=== PATIENT | male | born 1970 | race Caucasian/White ===

== ENCOUNTER 2022-02-07 19:25 | Observation (INO) | payer OTHER ==
[2022-02-07] MEDS ORDERED: DUONEB 0.5-3 MG/3 ml Neb IH ONE ×2 (19:51→19:58)
[2022-02-07] MEDS ORDERED: solu-MEDROL 125 MG, Sterile H2O 10 ml 2 ML IV ONE ×2 (19:51)
[2022-02-07 19:54] LABS: Absolute Neutrophil Ct (ANC) 3.78 (1.4-6.9); Basophil (Absolute #) 0.02 (0-0.4); Eosinophil % 0.6 % (0.00-5.0); Eosinophil (Absolute #) 0.03 (0-0.5); Hematocrit 49.3 % (42-50); Hemoglobin 16.3 gm/dl (12.5-18.0); Lymphocyte (Absolute #) 0.81 (1.0-4.6); Lymphocytes % 15.5 % (24.0-44.0); Mean Cell Volume 84.9 fl (78-100); Mean Corpuscular Hemoglobin 28.1 pg (26-32); Mean Corpuscular Hgb Concent. 33.1 g/dl (32-36); Mean Platelet Volume 9.4 fl (7.5-11.0); Monocyte (Absolute #) 0.58 (0.0-1.3); Monocytes % 11.1 % (0.0-12.0); Neutrophil % 72.4 % (36.0-66.0); Platelet Count 247 K/mm3 (150-450); Red Blood Count 5.81 M/mm3 (4.1-5.6); Red Cell Distribution Width 14.9 % (11.5-14.0); White Blood Count 5.2 K/mm3 (4.0-10.5)
--- NOTE | 2022-02-07 20:00 | ERPHSYRPT ---
- History of Present Illness Time Seen by Provider: 02/07/22 19:35 Source: patient Exam Limitations: no limitations Patient Subjective Stated Complaint: pt states he has been increasingly short of breath the last 2 days. Triage Nursing Assessment: pt alert and oriented, answers questions approp. pt ambualtory with steady gait noted. skin warm and dry. pt short of breath with exertion. exp wheezes note bilat. Physician History: Patient is a 52-year-old male presents to emergency department for evaluation of shortness of breath. Patient states he was diagnosed with bilateral pneumonia on Saturday, 3 days ago. Patient currently on azithromycin. Patient states his symptoms have been progressive. Patient is not having significant short of breath. Patient treated himself with a friend's nebulizer machine. Treatment occurred at approximately 1830. The nebulizer treatment helped somewhat however patient is still short of breath. Patient has been coughing more frequently than normal. Cough is occasionally productive. Patient has audible wheezing. 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 No nausea or vomiting. No diarrhea. No rash. Symptoms are progressive. Symptoms are mode rate in intensity. No specific worsening improving factors. Patient states otherwise healthy. He voices no other complaints or concerns at this time. Patient also states experiencing pleuritic chest pain. Pain worse with deep inspiration. Timing/Duration: day(s) (3 days) Activities at Onset: none Severity of Dyspnea-Max: moderate Severity of Dyspnea-Current: moderate Modifying Factors: Improves With: activity, oxygen Associated Symptoms: cough, chest pain/discomfort (Pleuritic chest pain), productive cough, No fever, No ankle swelling, No muscle spasms feet, No muscle spasms hands Allergies/Adverse Reactions: vancomycin Allergy (Severe, Verified 02/07/22 19:40) Anaphylactic Reaction amoxicillin [From Augmentin] Adverse Reaction (Intermediate, Verified 02/07/22 19:40) clavulanic acid [From Augmentin] Adverse Reaction (Intermediate, Verified 02/07/22 19:40) Home Medications: Azithromycin [Zithromax] 250 mg PO DAILY 02/07/22 [History] Methylprednisolone Packet [Medrol Dosepack] 4 mg PO UD 02/07/22 [History] Hx Tetanus, Diphtheria Vaccination/Date Given: Yes Hx Influenza Vaccination/Date Given: No Hx Pneumococcal Vaccination/Date Given: No Immunizations Up to Date: Yes Travel Risk - International Travel Have you traveled outside of the country in past 3 weeks: No - Coronavirus Screening Are you exhibiting any of the following symptoms?: Yes Symptoms: Fever, Shortness of Breath Close contact with a COVID-19 positive Pt in past 14-21 Days: No - Vaccine Status Have you recieved a Covid-19 vaccination: No - Review of Systems Constitutional: No Symptoms, No Fever, No Chills Eyes: No Symptoms Ears, Nose, & Throat: No Symptoms Respiratory: No Symptoms, No Cough, No Dyspnea Cardiac: No Symptoms, No Chest Pain, No Edema, No Syncope Abdominal/Gastrointestinal: No Symptoms, No Abdominal Pain, No Nausea, No Vomiting, No Diarrhea Genitourinary Symptoms: No Symptoms, No Dysuria Musculoskeletal: No Symptoms, No Back Pain, No Neck Pain Skin: No Symptoms, No Rash Neurological: No Symptoms, No Dizziness, No Focal Weakness, No Sensory Changes Psychological: No Symptoms Endocrine: No Symptoms Hematologic/Lymphatic: No Symptoms Immunological/Allergic: No Symptoms All Other Systems: Reviewed and Negative - Past Medical History Pertinent Past Medical History: Yes Respiratory History: Asthma, CHF - Past Surgical History Past Surgical History: Yes Musculoskeletal: Orthopedic Surgery Other Surgical History: loop recorder, sinus surgery - Social History Smoking Status: Never smoker Exposure to second hand smoke: No Drug Use: none Patient Lives Alone: Yes - Nursing Vital Signs Nursing Vital Signs: Initial Vital Signs Temperature 98.5 F 02/07/22 19:25 Pulse Rate 80 02/07/22 19:25 Respiratory Rate 22 02/07/22 19:25 Blood Pressure 110/82 02/07/22 19:25 O2 Sat by Pulse Oximetry 100 02/07/22 19:25 Pain Scale Pain Intensity 3 - Physical Exam General Appearance: no apparent distress, alert Eye Exam: PERRL/EOMI Ears, Nose, Throat Exam: hearing grossly normal, normal ENT inspection, normal pharynx Neck Exam: normal inspection, supple, full range of motion Respiratory Exam: airway intact, accessory muscle use, rhonchi, wheezing, other (Mild tachypnea.) Cardiovascular/Chest Exam: normal heart sounds, regular rate/rhythm Abdominal/Gastrointestinal Exam: soft, No tenderness, No distention, No mass Extremity Exam: non-tender, normal range of motion, normal inspection, no calf tenderness, no pedal edema Peripheral Pulses Exam: dorsalis-pedis (R): 2+, dorsalis-pedis (L): 2+ Neurologic Exam: alert, oriented x 3, 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 No evidence of acute pulmonary pathology. No consolidation no masses. No lymphadenopathy. Normal soft tissues) Ordered Tests: Active Orders 24 hr Category Date Time Status Last Greaser STAT Care 02/07/22 19:49 Active EKG-ER Only STAT Care 02/07/22 19:47 Active IV Insertion STAT Care 02/07/22 19:47 Active Pulse Oximetry (ED) STAT Care 02/07/22 19:47 Active CHEST WITH CONTRAST [CT] Stat Exams 02/07/22 21:39 Taken BLOOD CULTURE Stat Lab 02/07/22 20:05 Received CBC W DIFF Stat Lab 02/07/22 19:20 Completed CMP Stat Lab 02/07/22 19:20 Completed D-DIMER QUANTITATIVE Stat Lab 02/07/22 19:20 Completed Lactic Acid Stat Lab 02/07/22 19:47 Completed TROPONIN Q3H Lab 02/07/22 19:20 Completed TROPONIN Q3H Lab 02/07/22 23:00 Completed TROPONIN Q3H Lab 02/08/22 02:00 Ordered TROPONIN Q3H Lab 02/08/22 05:00 Ordered TROPONIN Q3H Lab 02/08/22 08:00 Ordered Respiratory Therapy Assessment DAILY RT 02/07/22 20:02 Active Transfer Order Routine Transfer 02/08/22 Ordered Medication Summary Discontinued Medications Generic Name Dose Route Start Last Admin Trade Name Freq PRN Reason Stop Dose Admin Albuterol/Ipratropium 3 ml 02/07/22 19:51 02/07/22 19:59 Ipratropium/Albuterol Sulfate 3 Ml Ampul.Neb IH 02/07/22 19:52 3 ml STAT ONE Administration Albuterol/Ipratropium Confirm 02/07/22 19:58 Ipratropium/Albuterol Sulfate 3 Ml Ampul.Neb Administered 02/07/22 19:59 Dose 3 ml IH .STK-MED ONE Methylprednisolone Sodium 0 mg 02/07/22 19:51 02/07/22 20:03 Succinate 125 mg/ Sterile IV 02/07/22 19:52 125 mg Water 2 ml STAT ONE Administration Methylprednisolone Sodium Succinate Confirm 02/07/22 20:01 Methylprednis Sod Succ 125 Mg/2 Ml Vial Administered 02/07/22 20:02 Dose 125 mg .ROUTE .STK-MED ONE Sterile Water Confirm 02/07/22 20:01 Water For Injection,Sterile 10 Ml Vial Administered 02/07/22 20:02 Dose 10 ml IJ .STK-MED ONE Lab/Rad Data: Laboratory Result Diagrams 02/07/22 19:20 02/07/22 19:20 Laboratory Results 02/08/22 02/07/22 02/07/22 Range/Units 00:26 23:00 19:47 WBC (4.0-10.5) K/mm3 RBC (4.1-5.6) M/mm3 Hgb (12.5-18.0) gm/dl Hct (42-50) % MCV (78-100) fl MCH (26-32) pg MCHC (32-36) g/dl RDW (11.5-14.0) % Plt Count (150-450) K/mm3 MPV (7.5-11.0) fl Gran % (36.0-66.0) % Eos # (Auto) (0-0.5) Absolute Lymphs (auto) (1.0-4.6) Absolute Monos (auto) (0.0-1.3) Lymphocytes % (24.0-44.0) % Monocytes % (0.0-12.0) % Eosinophils % (0.00-5.0) % Basophils % (0.0-0.4) % Absolute Granulocytes (1.4-6.9) Basophils # (0-0.4) D-Dimer (215-500) ng/mL Sodium (137-145) mmol/L Potassium (3.5-5.1) mmol/L Chloride (98-107) mmol/L Carbon Dioxide (22-30) mmol/L Anion Gap (5-15) MEQ/L BUN (9-20) mg/dL Creatinine (0.66-1.25) mg/dL Estimated GFR ML/MIN Glucose (74-106) mg/dL Lactic Acid 1.8 (0.4-2.0) Calcium (8.4-10.2) mg/dL Total Bilirubin (0.2-1.3) mg/dL AST (17-59) U/L ALT (0-50) U/L Alkaline Phosphatase (38-126) U/L Troponin I < 0.012 (0.000-0.034) ng/mL Serum Total Protein (6.3-8.2) g/dL Albumin (3.5-5.0) g/dL Influenza Type A Ag NEGATIVE (NEGATIVE) Influenza Type B Ag NEGATIVE (NEGATIVE) RSV (PCR) NEGATIVE (Negative) SARS-CoV-2 (PCR) NEGATIVE (NEGATIVE) 02/07/22 02/07/22 02/07/22 Range/Units 19:20 19:20 19:20 WBC (4.0-10.5) K/mm3 RBC (4.1-5.6) M/mm3 Hgb (12.5-18.0) gm/dl Hct (42-50) % MCV (78-100) fl MCH (26-32) pg MCHC (32-36) g/dl RDW (11.5-14.0) % Plt Count (150-450) K/mm3 MPV (7.5-11.0) fl Gran % (36.0-66.0) % Eos # (Auto) (0-0.5) Absolute Lymphs (auto) (1.0-4.6) Absolute Monos (auto) (0.0-1.3) Lymphocytes % (24.0-44.0) % Monocytes % (0.0-12.0) % Eosinophils % (0.00-5.0) % Basophils % (0.0-0.4) % Absolute Granulocytes (1.4-6.9) Basophils # (0-0.4) D-Dimer 557 H* (215-500) ng/mL Sodium 138 (137-145) mmol/L Potassium 4.4 (3.5-5.1) mmol/L Chloride 104 (98-107) mmol/L Carbon Dioxide 24 (22-30) mmol/L Anion Gap 13.8 (5-15) MEQ/L BUN 12 (9-20) mg/dL Creatinine 1.01 (0.66-1.25) mg/dL Estimated GFR > 60.0 ML/MIN Glucose 98 (74-106) mg/dL Lactic Acid (0.4-2.0) Calcium 9.2 (8.4-10.2) mg/dL Total Bilirubin 1.00 (0.2-1.3) mg/dL AST 27 (17-59) U/L ALT 26 (0-50) U/L Alkaline Phosphatase 54 (38-126) U/L Troponin I < 0.012 (0.000-0.034) ng/mL Serum Total Protein 6.7 (6.3-8.2) g/dL Albumin 3.9 (3.5-5.0) g/dL Influenza Type A Ag (NEGATIVE) Influenza Type B Ag (NEGATIVE) RSV (PCR) (Negative) SARS-CoV-2 (PCR) (NEGATIVE) 02/07/22 Range/Units 19:20 WBC 5.2 (4.0-10.5) K/mm3 RBC 5.81 H (4.1-5.6) M/mm3 Hgb 16.3 (12.5-18.0) gm/dl Hct 49.3 (42-50) % MCV 84.9 (78-100) fl MCH 28.1 (26-32) pg MCHC 33.1 (32-36) g/dl RDW 14.9 H (11.5-14.0) % Plt Count 247 (150-450) K/mm3 MPV 9.4 (7.5-11.0) fl Gran % 72.4 H (36.0-66.0) % Eos # (Auto) 0.03 (0-0.5) Absolute Lymphs (auto) 0.81 L (1.0-4.6) Absolute Monos (auto) 0.58 (0.0-1.3) Lymphocytes % 15.5 L (24.0-44.0) % Monocytes % 11.1 (0.0-12.0) % Eosinophils % 0.6 (0.00-5.0) % Basophils % 0.4 (0.0-0.4) % Absolute Granulocytes 3.78 (1.4-6.9) Basophils # 0.02 (0-0.4) D-Dimer (215-500) ng/mL Sodium (137-145) mmol/L Potassium (3.5-5.1) mmol/L Chloride (98-107) mmol/L Carbon Dioxide (22-30) mmol/L Anion Gap (5-15) MEQ/L BUN (9-20) mg/dL Creatinine (0.66-1.25) mg/dL Estimated GFR ML/MIN Glucose (74-106) mg/dL Lactic Acid (0.4-2.0) Calcium (8.4-10.2) mg/dL Total Bilirubin (0.2-1.3) mg/dL AST (17-59) U/L ALT (0-50) U/L Alkaline Phosphatase (38-126) U/L Troponin I (0.000-0.034) ng/mL Serum Total Protein (6.3-8.2) g/dL Albumin (3.5-5.0) g/dL Influenza Type A Ag (NEGATIVE) Influenza Type B Ag (NEGATIVE) RSV (PCR) (Negative) SARS-CoV-2 (PCR) (NEGATIVE) - Progress Progress: improved Air Movement: good Progress Note: Upon arrival to our ED patient was short of breath. Patient was hypoxic into the 80s. Nasal cannula applied. Oxygen saturation increased. After treatment with steroids and duo nebulizer treatment hypoxia improved while at rest. Troponin negative x2 , D-dimer positive. CTA chest negative. Patient advised that he was diagnosed with bilateral pneumonia. However CT chest did not reveal pneumonia. Patient ambulated in our ED. Patient maintaining saturations of approximately mid to low 90s. However during this time patient was tachypneic with labored breathing. Patient was not ready to be discharged home. Case discussed with Dr. Engel our on-call doctor who accepts admission to [facility]. Plan of care discussed with patient. He agrees to admission [facility] for further evaluation and treatment. Patient voices no other complaints or concerns at this time. Portions of this note were created with voice recognition technology. There may be grammatical, spelling, punctuation or sound alike errors 02/08/22 01:37 02/08/22 01:41 Blood Culture(s) Obtained: Yes Antibiotics given: Yes Discussed with DrDa: Chloe Will see patient in: hospital (observation) Counseled pt/family regarding: lab results, diagnosis, rad results - Departure Departure Disposition: Observation Clinical Impression: Hypoxia, SOB (shortness of breath), Wheezing Condition: Stable Critical Care Time: No Referrals: ANJELICA ROGERS [Primary Care Provider] - Follow up/PCP as directed
[2022-02-07 20:01] LABS: ALBUMIN 3.9 g/dL (3.5-5.0); ALKALINE PHOSPHATASE 54 U/L (38-126); ANION GAP 13.8 MEQ/L (5-15); BLOOD UREA NITROGEN 12 mg/dL (9-20); CHLORIDE 104 mmol/L (98-107); Calcium 9.2 mg/dL (8.4-10.2); Carbon Dioxide 24 mmol/L (22-30); Creatinine 1 1.01 mg/dL (0.66-1.25); EST GLOMERULAR FILTRATION RATE > 60.0 ML/MIN; Glucose 98 mg/dL (74-106); Potassium 4.4 mmol/L (3.5-5.1); SGOT/AST 27 U/L (17-59); SGPT/ALT 26 U/L (0-50); SODIUM 138 mmol/L (137-145); Total Protein 6.7 g/dL (6.3-8.2)
[2022-02-07] MEDS ORDERED: Sterile H2O 10 ml IJ ONE (20:01)
[2022-02-07] MEDS ORDERED: solu-MEDROL ONE (20:01)
[2022-02-08 01:04] LABS: INFLUENZA A NEGATIVE (NEGATIVE); INFLUENZA B NEGATIVE (NEGATIVE); RESPIRATORY SYNCTIAL VIRUS NEGATIVE (Negative); SARS-CoV-2 Xpert Express NEGATIVE (NEGATIVE)
[2022-02-08] MEDS ORDERED: LEVOFLOXACIN 750MG/150ML D5W 750 MG/150 ML BAG IV STA (01:38)
[2022-02-08] MEDS ORDERED: LEVOFLOXACIN 750MG/150ML D5W 750 MG/150 ML BAG IV ONE (01:43)
[2022-02-08] MEDS ORDERED: PROVENTIL Solution 2.5 MG/0.5 ML IH ONE (02:30)
[2022-02-08] MEDS: PROVENTIL 2.5 MG/3 ML NEB IH SCH ×6 (02:30→23:08)
[2022-02-08 05:18] LABS: Hematocrit 50.5 % (42-50); Hemoglobin 16.4 gm/dl (12.5-18.0); Mean Cell Volume 85.3 fl (78-100); Mean Corpuscular Hemoglobin 27.7 pg (26-32); Mean Corpuscular Hgb Concent. 32.5 g/dl (32-36); Mean Platelet Volume 9.3 fl (7.5-11.0); Platelet Count 253 K/mm3 (150-450); Red Blood Count 5.92 M/mm3 (4.1-5.6); White Blood Count 6.5 K/mm3 (4.0-10.5)
[2022-02-08] MEDS ORDERED: solu-MEDROL ONE (05:44)
[2022-02-08] MEDS ORDERED: Sterile H2O 10 ml IJ ONE (05:45)
[2022-02-08 06:07] LABS: ALBUMIN 4.1 g/dL (3.5-5.0); ALKALINE PHOSPHATASE 54 U/L (38-126); ANION GAP 18.3 MEQ/L (5-15); BLOOD UREA NITROGEN 11 mg/dL (9-20); CHLORIDE 100 mmol/L (98-107); Carbon Dioxide 25 mmol/L (22-30); Creatinine 1 0.96 mg/dL (0.66-1.25); EST GLOMERULAR FILTRATION RATE > 60.0 ML/MIN; Glucose 192 mg/dL (74-106); Potassium 4.8 mmol/L (3.5-5.1); SGOT/AST 27 U/L (17-59); SGPT/ALT 27 U/L (0-50); SODIUM 138 mmol/L (137-145); Total Protein 7.1 g/dL (6.3-8.2)
[2022-02-08] MEDS: solu-MEDROL 80 MG, Sterile H2O 10 ml 2 ML IV SCH ×6 (06:31→19:01)
--- NOTE | 2022-02-08 08:41 | PCM.HP ---
History of Present Illness - Chief Complaint Chief Complaint: SOB, Wheezing, Asthma History of Present Illness: is a 52 year old male who was seen in [place] last week with cough, fever and shortness of breath, he was diagnosed with bilateral pneumonia and placed on cefpodoxime and zithromax but continued to worsen, fever broke but he has been more short of breath and wheezing, used a friend's nebulizer with minimal improvement. Has a remote history of asthma earlier in life but no recent issues. - Review of Systems Constitutional: No Fever, No Chills Respiratory: Cough, Short Of Breath, Wheezing Cardiac: No Chest Pain, No Edema, No Syncope Abdominal/Gastrointestinal: No Abdominal Pain, No Nausea, No Vomiting, No Diarrhea Genitourinary Symptoms: No Dysuria Skin: No Rash All Other Systems: Reviewed and Negative Medications & Allergies Home Medications: Home Medication List Azithromycin [Zithromax] 250 mg PO DAILY 02/07/22 [History Confirmed 02/07/22] Methylprednisolone Packet [Medrol Dosepack] 4 mg PO UD 02/07/22 [History Confirmed 02/07/22] Omeprazole 40 mg PO BID 02/08/22 [History Confirmed 02/08/22] Allergies/Adverse Reactions: Allergies Allergy/AdvReac Type Severity Reaction Status Date / Time vancomycin Allergy Severe Anaphylactic Verified 02/07/22 19:40 Reaction amoxicillin [From Augmentin] AdvReac Intermediate Verified 02/07/22 19:40 clavulanic acid AdvReac Intermediate Verified 02/07/22 19:40 [From Augmentin] - Past Medical History Past Medical History: Yes Neurological History: No Pertinent History ENT History: No Pertinent History Cardiac History: Myocardial Infarction (AR) Respiratory History: Pneumonia Endocrine Medical History: No Pertinent History Musculoskelatal History: Arthritis GI Medical History: GERD History: No Pertinent History Pyscho-Social History: No Pertinent History Male Reproductive Disorders: No Pertinent History - Past Surgical History Past Surgical History: Yes (back and neck) Neuro Surgical History: No Pertinent History Cardiac History: Other Respiratory Surgery: No Pertinent History GI Surgical History: No Pertinent History Genitourinary Surgical Hx: No Pertinent History Musculskeletal Surgical Hx: Orthopedic Surgery Male Surgical History: No Pertinent History Other Surgical History: loop recorder, sinus surgery - Social History Smoking Status: Never smoker Exposure to second hand smoke: No Alcohol: None Drug Use: none - Physical Exam Vital Signs: Vital Signs - 24 hr Temp Pulse Resp BP Pulse Ox 02/08/22 07:43 97.7 F 85 26 H 121/72 95 02/08/22 04:00 98 H 20 94 L 02/08/22 02:30 77 18 95 02/08/22 02:17 97.9 F 83 20 150/70 95 02/08/22 01:59 95 02/08/22 01:42 100 02/08/22 01:15 81 18 148/79 97 02/08/22 00:13 77 18 151/78 97 02/08/22 00:00 81 151/78 96 02/07/22 23:18 80 16 137/86 94 L 02/07/22 22:00 80 18 122/68 96 02/07/22 21:00 82 127/79 96 02/07/22 20:29 78 110/76 96 02/07/22 20:03 75 20 96 02/07/22 20:00 94 L 02/07/22 19:25 98.5 F 80 22 110/82 100 General Appearance: no apparent distress Neurologic Exam: alert, oriented x 3 Respiratory Exam: wheezing Cardiovascular Exam: regular rate/rhythm, normal heart sounds, normal peripheral pulses Gastrointestinal/Abdomen Exam: soft, normal bowel sounds, No tenderness, No mass Extremity Exam: normal inspection, normal range of motion, pelvis stable Skin Exam: normal color, warm, dry, No rash Results - Labs Lab/Micro Results: Lab Results-Last 24 Hours 02/07/22 02/07/22 02/07/22 Range/Units 19:20 19:20 19:20 WBC 5.2 (4.0-10.5) K/mm3 RBC 5.81 H (4.1-5.6) M/mm3 Hgb 16.3 (12.5-18.0) gm/dl Hct 49.3 (42-50) % MCV 84.9 (78-100) fl MCH 28.1 (26-32) pg MCHC 33.1 (32-36) g/dl RDW 14.9 H (11.5-14.0) % Plt Count 247 (150-450) K/mm3 MPV 9.4 (7.5-11.0) fl Gran % 72.4 H (36.0-66.0) % Eos # (Auto) 0.03 (0-0.5) Absolute Lymphs (auto) 0.81 L (1.0-4.6) Absolute Monos (auto) 0.58 (0.0-1.3) Lymphocytes % 15.5 L (24.0-44.0) % Monocytes % 11.1 (0.0-12.0) % Eosinophils % 0.6 (0.00-5.0) % Basophils % 0.4 (0.0-0.4) % Absolute Granulocytes 3.78 (1.4-6.9) Basophils # 0.02 (0-0.4) D-Dimer 557 H* (215-500) ng/mL Sodium 138 (137-145) mmol/L Potassium 4.4 (3.5-5.1) mmol/L Chloride 104 (98-107) mmol/L Carbon Dioxide 24 (22-30) mmol/L Anion Gap 13.8 (5-15) MEQ/L BUN 12 (9-20) mg/dL Creatinine 1.01 (0.66-1.25) mg/dL Estimated GFR > 60.0 ML/MIN Glucose 98 (74-106) mg/dL Lactic Acid (0.4-2.0) Calcium 9.2 (8.4-10.2) mg/dL Total Bilirubin 1.00 (0.2-1.3) mg/dL AST 27 (17-59) U/L ALT 26 (0-50) U/L Alkaline Phosphatase 54 (38-126) U/L Troponin I (0.000-0.034) ng/mL Serum Total Protein 6.7 (6.3-8.2) g/dL Albumin 3.9 (3.5-5.0) g/dL Influenza Type A Ag (NEGATIVE) Influenza Type B Ag (NEGATIVE) RSV (PCR) (Negative) SARS-CoV-2 (PCR) (NEGATIVE) 02/07/22 02/07/22 02/07/22 Range/Units 19:20 19:47 23:00 WBC (4.0-10.5) K/mm3 RBC (4.1-5.6) M/mm3 Hgb (12.5-18.0) gm/dl Hct (42-50) % MCV (78-100) fl MCH (26-32) pg MCHC (32-36) g/dl RDW (11.5-14.0) % Plt Count (150-450) K/mm3 MPV (7.5-11.0) fl Gran % (36.0-66.0) % Eos # (Auto) (0-0.5) Absolute Lymphs (auto) (1.0-4.6) Absolute Monos (auto) (0.0-1.3) Lymphocytes % (24.0-44.0) % Monocytes % (0.0-12.0) % Eosinophils % (0.00-5.0) % Basophils % (0.0-0.4) % Absolute Granulocytes (1.4-6.9) Basophils # (0-0.4) D-Dimer (215-500) ng/mL Sodium (137-145) mmol/L Potassium (3.5-5.1) mmol/L Chloride (98-107) mmol/L Carbon Dioxide (22-30) mmol/L Anion Gap (5-15) MEQ/L BUN (9-20) mg/dL Creatinine (0.66-1.25) mg/dL Estimated GFR ML/MIN Glucose (74-106) mg/dL Lactic Acid 1.8 (0.4-2.0) Calcium (8.4-10.2) mg/dL Total Bilirubin (0.2-1.3) mg/dL AST (17-59) U/L ALT (0-50) U/L Alkaline Phosphatase (38-126) U/L Troponin I < 0.012 < 0.012 (0.000-0.034) ng/mL Serum Total Protein (6.3-8.2) g/dL Albumin (3.5-5.0) g/dL Influenza Type A Ag (NEGATIVE) Influenza Type B Ag (NEGATIVE) RSV (PCR) (Negative) SARS-CoV-2 (PCR) (NEGATIVE) 02/08/22 02/08/22 02/08/22 Range/Units 00:26 01:36 05:00 WBC (4.0-10.5) K/mm3 RBC (4.1-5.6) M/mm3 Hgb (12.5-18.0) gm/dl Hct (42-50) % MCV (78-100) fl MCH (26-32) pg MCHC (32-36) g/dl RDW (11.5-14.0) % Plt Count (150-450) K/mm3 MPV (7.5-11.0) fl Gran % (36.0-66.0) % Eos # (Auto) (0-0.5) Absolute Lymphs (auto) (1.0-4.6) Absolute Monos (auto) (0.0-1.3) Lymphocytes % (24.0-44.0) % Monocytes % (0.0-12.0) % Eosinophils % (0.00-5.0) % Basophils % (0.0-0.4) % Absolute Granulocytes (1.4-6.9) Basophils # (0-0.4) D-Dimer (215-500) ng/mL Sodium (137-145) mmol/L Potassium (3.5-5.1) mmol/L Chloride (98-107) mmol/L Carbon Dioxide (22-30) mmol/L Anion Gap (5-15) MEQ/L BUN (9-20) mg/dL Creatinine (0.66-1.25) mg/dL Estimated GFR ML/MIN Glucose (74-106) mg/dL Lactic Acid (0.4-2.0) Calcium (8.4-10.2) mg/dL Total Bilirubin (0.2-1.3) mg/dL AST (17-59) U/L ALT (0-50) U/L Alkaline Phosphatase (38-126) U/L Troponin I < 0.012 < 0.012 (0.000-0.034) ng/mL Serum Total Protein (6.3-8.2) g/dL Albumin (3.5-5.0) g/dL Influenza Type A Ag NEGATIVE (NEGATIVE) Influenza Type B Ag NEGATIVE (NEGATIVE) RSV (PCR) NEGATIVE (Negative) SARS-CoV-2 (PCR) NEGATIVE (NEGATIVE) 02/08/22 02/08/22 Range/Units 05:00 05:00 WBC 6.5 (4.0-10.5) K/mm3 RBC 5.92 H (4.1-5.6) M/mm3 Hgb 16.4 (12.5-18.0) gm/dl Hct 50.5 H (42-50) % MCV 85.3 (78-100) fl MCH 27.7 (26-32) pg MCHC 32.5 (32-36) g/dl RDW 15.0 H (11.5-14.0) % Plt Count 253 (150-450) K/mm3 MPV 9.3 (7.5-11.0) fl Gran % (36.0-66.0) % Eos # (Auto) (0-0.5) Absolute Lymphs (auto) (1.0-4.6) Absolute Monos (auto) (0.0-1.3) Lymphocytes % (24.0-44.0) % Monocytes % (0.0-12.0) % Eosinophils % (0.00-5.0) % Basophils % (0.0-0.4) % Absolute Granulocytes (1.4-6.9) Basophils # (0-0.4) D-Dimer (215-500) ng/mL Sodium 138 (137-145) mmol/L Potassium 4.8 (3.5-5.1) mmol/L Chloride 100 (98-107) mmol/L Carbon Dioxide 25 (22-30) mmol/L Anion Gap 18.3 H (5-15) MEQ/L BUN 11 (9-20) mg/dL Creatinine 0.96 (0.66-1.25) mg/dL Estimated GFR > 60.0 ML/MIN Glucose 192 H (74-106) mg/dL Lactic Acid (0.4-2.0) Calcium 9.0 (8.4-10.2) mg/dL Total Bilirubin 0.60 (0.2-1.3) mg/dL AST 27 (17-59) U/L ALT 27 (0-50) U/L Alkaline Phosphatase 54 (38-126) U/L Troponin I (0.000-0.034) ng/mL Serum Total Protein 7.1 (6.3-8.2) g/dL Albumin 4.1 (3.5-5.0) g/dL Influenza Type A Ag (NEGATIVE) Influenza Type B Ag (NEGATIVE) RSV (PCR) (Negative) SARS-CoV-2 (PCR) (NEGATIVE) - Radiology Impressions Radiology Exams & Impressions: Radiology Procedures Category Date Time Status CHEST WITH CONTRAST [CT] Stat Exams 02/07/22 21:39 Taken - Other Procedures and Tests Respiratory Therapy 02/07/22 20:02 Respiratory Therapy Assessment DAILY Assessment/Plan (1) Asthma with acute exacerbation in adult Current Visit: Yes Status: Acute Assessment & Plan: continue nebs and steroids, will continue levaquin due to fever but no pneumonia reported on CT. Code(s): J45.901 - UNSPECIFIED ASTHMA WITH (ACUTE) EXACERBATION
--- NOTE | 2022-02-08 09:01 | XRAY ---
Indication: Chest pain, short of breath, and elevated d-dimer. Multiple contiguous axial images obtained through the chest using 100 cc Isovue 370 contrast and PE protocol. Comparison: None There is good opacification of the pulmonary arteries to include the lobar and segmental branches. No pulmonary embolus. Heart not enlarged. Aorta is normal in course and caliber. No pathologic mediastinal/hilar lymphadenopathy. Lungs demonstrates minimal left mid to lower lung subsegmental atelectasis/scarring. No suspicious pulmonary mass, infiltrate, effusion, or pneumothorax. Bony thorax intact with minimal degenerative changes throughout the spine. Limited upper abdomen including adrenal glands are unremarkable. Impression: Negative pulmonary embolus. No acute cardiopulmonary abnormalities. Comment: Preliminary interpretation made by [facility]. No critical discrepancy.
[2022-02-08] MEDS: Protonix 40MG Tablet PO SCH ×2 (09:46→21:21)
[2022-02-08] MEDS ORDERED: NON-FORMULARY ITEM (Omeprazole [Omeprazole] 40 MG Capsule.Dr) PO SCH (10:00)
[2022-02-08] MEDS ORDERED: LEVOFLOXACIN 750MG/150ML D5W 750 MG/150 ML BAG IV SCH (22:00)
[2022-02-09] MEDS: solu-MEDROL 80 MG, Sterile H2O 10 ml 2 ML IV SCH ×4 (00:03→06:17)
[2022-02-09] MEDS: PROVENTIL 2.5 MG/3 ML NEB IH SCH (03:16)
[2022-02-09] MEDS ORDERED: Sodium Chloride 3 ML UD NEBULES IH ONE (03:21)
[2022-02-09] MEDS: Xopenex 1.25 MG/0.5 ML UD NEBULE IH SCH ×2 (03:25→07:13)
--- NOTE | 2022-02-09 08:43 | PCM.DS ---
Discharge Summary Date of Admission: 02/08/22 01:58 Admitting Physician: MICHELE MADERA Primary Care Provider: ANJELICA ROGERS Allergies Allergies vancomycin Allergy (Severe, Verified 02/07/22 19:40) Anaphylactic Reaction amoxicillin [From Augmentin] Adverse Reaction (Intermediate, Verified 02/07/22 19:40) clavulanic acid [From Augmentin] Adverse Reaction (Intermediate, Verified 02/07/22 19:40) albuterol Adverse Reaction (Verified 02/09/22 03:50) Drops O2 sats and causes chest to tighten Hospital Summary - Hospital Course Hospital Course: patient admitted with cough, shortness of breath and wheezing. treated for asthma exacerbation, has been treated with po abx for pneumonia recently. he had poor response and side effects with albuterol, xopenex nebs are medically necessary - Vitals & Intake/Output Vital Signs: Vital Signs Temperature 98.2 F 02/09/22 04:00 Pulse Rate 88 02/09/22 07:14 Respiratory Rate 12 02/09/22 07:14 Blood Pressure 130/65 02/09/22 04:00 O2 Sat by Pulse Oximetry 95 02/09/22 07:14 Intake & Output: Intake & Output 02/06/22 02/07/22 02/08/22 02/09/22 11:59 11:59 11:59 11:59 Intake Total 720 1280 Balance 720 1280 Weight 106.186 kg 106.3 kg - Lab Result Diagrams: 02/08/22 05:00 02/08/22 05:00 - Radiology Exams Ordered Rad Exams-Entire Visit: Radiology Procedures Category Date Time Status CHEST WITH CONTRAST [CT] Stat Exams 02/07/22 21:39 Completed - Procedures and Test Procedures and Tests throughout Hospitalization: Therapy Orders & Screens 02/07/22 20:02 Respiratory Therapy Assessment DAILY Comment: Discharge Exam General Appearance: no apparent distress Neurologic Exam: alert, oriented x 3 Respiratory Exam: normal breath sounds, lungs clear, No respiratory distress Cardiovascular Exam: regular rate/rhythm, normal heart sounds Gastrointestinal/Abdomen Exam: soft, No tenderness, No mass Extremity Exam: normal inspection, normal range of motion Skin Exam: normal color, warm, dry Final Diagnosis/Problem List - Final Discharge Diagnosis/Problem (1) Asthma with acute exacerbation in adult Current Visit: Yes Status: Acute Assessment & Plan: home on po meds as ordered Code(s): J45.901 - UNSPECIFIED ASTHMA WITH (ACUTE) EXACERBATION - Discharge Disposition: Home, Self-Care Condition: Stable Prescriptions: New Prednisone 20 mg [Deltasone 20 mg] 20 mg PO UD #18 tablet Levalbuterol Tartrate [Levalbuterol Tartrate Hfa] 2 puffs IH Q6H PRN PRN #1 unit PRN Reason: Shortness Of Breath levoFLOXacin [Levofloxacin] 750 mg PO DAILY #4 tablet Levalbuterol HCl 1.25 MG/0.5M* [Xopenex 1.25 MG/0.5 ML UD NEBULE] 1.25 mg IH Q6H PRN PRN #100 unit PRN Reason: Shortness Of Breath Continue Omeprazole 40 mg PO BID Discontinued Methylprednisolone Packet [Medrol Dosepack] 4 mg PO UD Azithromycin [Zithromax] 250 mg PO DAILY Follow up with: ANJELICA ROGERS [Primary Care Provider] -
[2022-02-09 09:05] VITALS: BP 138/63; PULSE 104; O2SAT 91
== END 2022-02-09 09:58 | disposition home or self-care (01) ==
LOC: ED 19:25 → MED SURG 02-08 01:58
PROVIDERS: ADMIT Family Medicine; ATTEND Family Medicine
DX: J45.901 Unspecified asthma with (acute) exacerbation (principal); I25.2 Old myocardial infarction; Z20.828 Contact with and (suspected) exposure to other viral communicable diseases; Z79.899 Other long term (current) drug therapy
CPT/HCPCS: 0241U; 36000; 36415; 71260; 80053; 83605; 84484; 85025; 85027; 85379; 87040; 93005; 93041; 93268; 94640; 94760; 94762; 96374; 99285; G0378; J1956; J2930; J7609; A9270-GY